=== PATIENT | male | born 1975 | race Caucasian/White ===

== ENCOUNTER 2016-06-14 11:47 | Emergency (ER) | payer SELFPAY ==
--- NOTE | 2016-06-14 12:15 | ED Physician Chart ---
Chief Complaint/HPI - Patient Information Date Seen:: 06/14/16 Time Seen:: 12:09 Chief Complaint:: syncope History of Present Illness:: pt was [place] [employer] and had been standing in sun x 1 hr. had not eaten anything except 1 cup coffee all am. he became weak and dizzy and had syncope. says he feels fine now. just hungry. no pain. there was no cp. no kapadia. no sob. 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 says he hasnt seen a dr since he was 15 yoa. no known cardiac anomaly. Allergies:: Allergies Allergy/AdvReac Type Severity Reaction Status Date / Time No Known Allergies Allergy Verified 06/14/16 12:06 Historian:: Patient, Family Member (mom) Review of Systems - Review of Systems General/Constitutional: No fever, No chills, No weight loss, No weakness, No diaphoresis, No edema, No loss of appetite Skin: No skin lesions, No rash, No bruising Head: No headache, No light-headedness Eyes: No loss of vision, No pain, No diplopia ENT: No earache, No nasal drainage, No sore throat, No tinnitus Neck: No neck pain, No swelling, No thyromegaly, No stiffness, No mass noted Cardio Vascular: No chest pain, No palpitations, No PND, No orthopnea, No edema Pulmonary: No SOB, No cough, No sputum, No wheezing GI: No nausea, No vomiting, No diarrhea, No pain, No melena, No hematochezia, No constipation, No hematemesis G/U: No dysuria, No frequency, No hematuria Musculoskeletal: No bone or joint pain, No back pain, No muscle pain Endocrine: No polyuria, No polydipsia Psychiatric: No prior psych history, No depression, No anxiety, No suicidal ideation Hematopoietic: No bruising, No lymphadenopathy Allergic/Immuno: No urticaria, No angioedema Neurological: Syncope, No focal symptoms, No weakness, No paresthesia, No headache, No seizure, Dizziness, No confusion, No vertigo Past Medical History - Past Medical History Past Medical History: Other (childhood leukemia, pectum excavinum) Social History: Lives With Parents Medication: None Family Medical History - Family Member Mother Living Status: Still Living Hx Family Hypertension: Yes Physical Exam - Physical Examination General/Constitutional: Awake, Well-developed, well-nourished, Alert, No distress, GCS 15, Non-toxic appearing, Ambulatory Other Gen/Cons comments:: thin male in nad at moment. alert and talking coherently. denies pain. moist mucosa. Head: Atraumatic Eyes: Lids, conjuctiva normal, PERRL, EOMI Skin: Nl inspection, No rash, No skin lesions, No ecchymosis, Well hydrated, No lymphadenopathy ENMT: External ears, nose nl, Nasal exam nl, Lips, teeth, gums nl Neck: Nontender, Full ROM w/o pain, No JVD, No nuchal rigidity, No bruit, No mass, No stridor Respiratory: Nl effort/Exclusion, Clear to Auscultation, No Wheeze/Rhonchi/Rales Cardio Vascular: RRR, No murmur, gallop, rubs, NL S1 S2 Other Cardio Vascular comments:: pectum excavinum deformity. GI: No tenderness/rebounding/guarding, No organomegaly, No hernia, Normal BS's, Nondistended, No mass/bruits, No McBurney tenderness : No CVA tenderness Extremities: No tenderness or effusion, Full ROM, normal strength in all extremities, No edema, Normal digits & nails Neuro/Psych: Alert/oriented, DTR's symmetric, Normal sensory exam, Normal motor strength, Judgement/insight normal, Mood normal, Normal gait, No focal deficits Misc: normal gait, Normal back, No paraspinal tenderness Labs/Radiology/EKG Results - Lab Results Results: Laboratory Tests 06/14/16 06/14/16 06/14/16 12:07 12:15 12:15 WBC 5.3 RBC 4.68 Hgb 14.3 Hct 42.3 MCV 90.3 MCH 30.5 H MCHC Differential 33.8 RDW 12.2 Plt Count 183 MPV 8.5 Neutrophils % 68.0 Lymphocytes % 24.8 Monocytes % 6.0 Eosinophils % 0.7 Basophils % 0.5 Sodium 140 Potassium 4.6 Chloride 104 Carbon Dioxide 24.4 Anion Gap 16.2 H BUN 23 Creatinine 1.0 Est GFR ( Amer) > 60.0 Est GFR (Non-Af Amer) > 60.0 BUN/Creatinine Ratio 23.0 Glucose 99 POC Glucose 79 Calcium 9.4 Total Bilirubin 0.5 AST 19 ALT 19 Alkaline Phosphatase 57 Creatine Kinase 83 Troponin I Total Protein 6.8 Albumin 4.2 Globulin 2.6 Albumin/Globulin Ratio 1.6 06/14/16 12:15 WBC RBC Hgb Hct MCV MCH MCHC Differential RDW Plt Count MPV Neutrophils % Lymphocytes % Monocytes % Eosinophils % Basophils % Sodium Potassium Chloride Carbon Dioxide Anion Gap BUN Creatinine Est GFR ( Amer) Est GFR (Non-Af Amer) BUN/Creatinine Ratio Glucose POC Glucose Calcium Total Bilirubin AST ALT Alkaline Phosphatase Creatine Kinase Troponin I < 0.01 L Total Protein Albumin Globulin Albumin/Globulin Ratio - Radiology Results Results: ct head nad ct chest - pectus xcav def. nrml cardiac appearance ?apical scarring (dw pt). no aneurysm. - EKG Interpretations EKG Time:: 11:50 Rate & Rhythm: nsr 70 [place]: 125 Intervals: [id number] Comments:: upsloping st elev to v3/4/5 likely benign repol or structural deflection from pectum excavinum. ED Septic Shock - . Is Septic Shock (SBP<90, OR Lactate>4 mmol\L) present?: No Reassessment (Disposition) - Reassessment Reassessment:: Results were reviewed with the patient. Patient denies any recent cough. Patient was given a meal on ER arrival and says he feels fine ever since. He has been up on his feet and felt okay. The autoread by the computer read the ECG as abnormal. However my read is that it is likely a benign repoll. The troponin came back negative. Patient has not had any chest pain. And this does not sound like an acute coronary event. The episode sounds consistent with a vasovagal syncope related to patient's not having eaten and stood for a prolonged time in the hot sun. Patient was advised he may go home with family today. He is to return if any further syncope neurologic change or chest pain. He is advised to see a primary care physician. He would be in his best interest to discuss possible screening for tuberculosis with primary care physician. Reassessment Condition:: Improved - Diagnosis Diagnosis:: 1 vasovagal syncope 2 incidental pectum excavinum anomaly 3 baseline abnormal ecg w benign repol 4 incidental apical scarring on ct chest - Aftercare/Follow up Instructions Aftercare/Follow-Up Instructions:: Counseled pt & family regarding lab results/ diagnosis & need follow up - Patient Disposition Discharge/Transfer:: Home Condition at Disposition:: Improved
[2016-06-14] MEDS: Sodium Chloride 0.9% 1,000 ML IV ONE (12:21)
[2016-06-14 12:25] LABS: % BASOPHILS 0.5 % (0.0-2.0); % EOSINOPHILS 0.7 % (0.0-5.0); % LYMPHOCYTES 24.8 % (20.0-50.0); HEMATOCRIT 42.3 % (39.0-49.0); HEMOGLOBIN 14.3 gm/dL (13.2-17.3); MEAN CELL VOLUME 90.3 fl (80-99); MEAN CORPUSCULAR HEMOGLOBIN 30.5 pg (26.0-30.0); MEAN CORPUSCULAR HGB CONC 33.8 pg (28.0-36.0); MEAN PLATELET VOLUME 8.5 fl; NEUTROPHILE ABSOLUTE 3.7 Th/cmm (1.8-8.0); PLATELET COUNT 183 Th/cmm (150-400); RED BLOOD COUNT 4.68 Mil/cmm (4.30-5.70); RED CELL DISTRIBUTION WIDTH 12.2 % (11.5-20.0); WHITE BLOOD COUNT 5.3 Th/cmm (4.8-10.8)
[2016-06-14 12:43] LABS: ALB/GLOB RATIO 1.6 (1.0-1.8); ALKALINE PHOSPHATASE 57 U/L (34-104); ANION GAP 16.2 (7.0-16.0); BILIRUBIN,TOTAL 0.5 mg/dL (0.3-1.0); BUN - UREA NITROGEN 23 mg/dL (7-25); CALCIUM SERUM 9.4 mg/dL (8.6-10.3); CARBON DIOXIDE 24.4 mEq/L (21.0-31.0); CHLORIDE 104 mEq/L (98-107); GLUCOSE 99 mg/dL (70-105); POTASSIUM SERUM 4.6 mEq/L (3.5-5.1); SGOT 19 U/L (13-39); SGPT/ALT 19 U/L (7-52); SODIUM SERUM 140 mEq/L (136-145)
--- NOTE | 2016-06-14 13:08 | Diagnostic Imaging Report ---
Head CT without intravenous contrast Indication: Syncope Comparison: None Technique: Axial images were obtained from the vertex to the skull base without IV contrast. Coronal reconstructions were made. Total DLP: 505, [id number] FINDINGS: Images of the brain obtained without contrast demonstrate no acute hemorrhage. No mass lesions identified. The ventricles and basal cisterns are patent. The vieira-white matter differentiation is preserved. There is no mass effect or midline shift. No skull fractures identified. No soft tissue swelling. The paranasal sinuses are clear. IMPRESSION: No acute intracranial abnormality.
--- NOTE | 2016-06-14 13:19 | Diagnostic Imaging Report ---
CT Chest without IV contrast HISTORY: Syncope, provided history of pectus deformity COMPARISON: None. Technique: Axial images were obtained from the base of the neck to the abdomen without IV contrast. Total DLP 170, CTD I 3.7 Findings: Assessment of the mediastinum is limited due to lack of IV contrast. Pocket of gas is seen within the left brachiocephalic vein. No evidence of mediastinal lymphadenopathy. Heart size is normal. No pericardial effusion. No evidence of an aortic aneurysm. Hyperinflated lungs are seen with mild chronic lung changes. Biapical areas of scarring and small areas of nodularity are seen measuring up to 4 mm. No focal consolidation or effusions. There is 4 mm nodular opacity of the right middle lobe (image 69, series 3). The upper abdomen demonstrates no acute abnormalities. The osseous structures demonstrate no acute abnormalities. IMPRESSION: Hyperinflated lungs with mild chronic lung changes and biapical densities likely due to scarring. 4 mm right apical nodularity and 4 mm right middle lobe nodularity is noted, nonspecific, and may present areas of scarring or may be due to prior infectious or inflammatory process. Consider follow-up surveillance CT chest, if warranted. There may be underlying early COPD changes. Again clinical correlation is recommended. No evidence of pneumothorax. No focal consolidation. Pocket of gas seen within the left brachiocephalic vein, significance uncertain and may have been related to recent injection procedure.
== END 2016-06-14 14:14 | disposition home or self-care (01) ==
LOC: ER 11:47
DX: R55 Syncope and collapse (principal); Q89.8 Other specified congenital malformations
CPT/HCPCS: 36415-UA; 70450-TC; 71250-TC; 80053-TC; 82550-TC; 82948-90; 84484-TC; 85025-TC; 93005; J7030